=== PATIENT | female | born 1985 | race Caucasian/White ===

== ENCOUNTER 2019-08-18 16:15 | Outpatient (CLI) | payer OTHER ==
[~2019-08-18] VITALS: Ht 172.7 cm; Wt 67.2 kg
[~2019-08-18 16:15] MED LIST: FERR324T8 PO; HYDR-3240 PO; IBUP-1222 PO; SENN-177 PO
[2019-08-18] MEDS ORDERED: FOLI0.4T2 PO (16:48)
[2019-08-18] MEDS ORDERED: PEDI1TAB35 PO (16:48)
[2019-08-18 16:55] VITALS: BP 101/58
[2019-08-18 17:03] LABS: MICROSCOPIC INDICATED
== END 2019-08-18 17:51 | disposition home or self-care (01) ==
LOC: LDOP 16:15
PROVIDERS: ATTEND Obstetrics & Gynecology
DX: O26.893 Other specified pregnancy related conditions, third trimester (principal); R25.2 Cramp and spasm; Z3A.32 32 weeks gestation of pregnancy
CPT/HCPCS: 59025; 81001; 87086; 99201; G0463